=== PATIENT | male | born 1990 | race Caucasian/White ===

== ENCOUNTER 2017-07-21 21:09 | Inpatient (IN) | payer OTHER ==
--- NOTE | 2017-07-21 21:35 | HP ---
COWS - Scale Resting Pulse: 0= [place] 80 or Below Sweatin=Flushed/Facial Moisture Restless Observation: 5= Unable to Sit Still Pupil Size: 1= Pupils >than Normal Bone or Joint Aches: 4=Acute Joint/Muscle Pain Runny Nose/ Eye Tearin= Runny Nose/Eyes GI Upset > 30mins: 5=Frequent Vomit/Diarrhea Tremor Observation: 2= Slight Tremor Visible Yawning Observation: 1= 1-2x During Session Anxiety or Irritability: 2=Irritable/Anxious Goose Flesh Skin: 0=Smooth Skin COWS Score: 24 Admission ROS S - [facility] Chief Complaint: SEEKING DETOX TXMENT FOR OPIOID WITHDRAWAL SX'S Allergies/Adverse Reactions: Allergies Allergy/AdvReac Type Severity Reaction Status Date / Time No Known Allergies Allergy Verified 07/21/17 21:29 History of Present Illness: 27 Y.O. MALE WITH HX/O OF OPIOID DEPENDENCE HERE FOR DETOX TXMENT. CLIENT WAS REFERRED BY [facility] AFTER PRESENTING THERE FOR N/V/D DUE TO HEROIN WITHDRAWAL SX'S Exam Limitations: No Limitations - Ebola screening Have you traveled outside of the country in the last 21 days: No Have you had contact with anyone from an Ebola affected area: No Have you been sick,other than usual withdrawal symptoms: No Do you have a fever: No - Review of Systems Constitutional: Chills, Malaise, Night Sweats, Changes in sleep EENT: reports: No Symptoms Reported Respiratory: reports: No Symptoms reported Cardiac: reports: No Symptoms Reported GI: reports: Diarrhea, Nausea, Poor Appetite, Poor Fluid Intake, Vomiting : reports: Other (HESITANCY) Musculoskeletal: reports: Back Pain Integumentary: reports: No Symptoms Reported Neuro: reports: No Symptoms reported Endocrine: reports: No Symptoms Reported Hematology: reports: No Symptoms Reported Psychiatric: reports: Anxious, Depressed Other Systems: Reviewed and Negative Patient History - Patient Medical History Hx Anemia: No Hx Asthma: No Hx Chronic Obstructive Pulmonary Disease (COPD): No Hx Cancer: No Hx Cardiac Disorders: No Hx Congestive Heart Failure: No Hx Hypertension: No Hx Hypercholesterolemia: No Hx Pacemaker: No HX Cerebrovascular Accident: No Hx Seizures: No Hx Dementia: No Hx Diabetes: No Hx Gastrointestinal Disorders: No Hx Liver Disease: No Hx Genitourinary Disorders: No Hx Sexually Transmitted Disorders: No Hx Renal Disease (ESRD): No Hx Thyroid Disease: No Hx Human Immunodeficiency Virus (HIV): No Hx Hepatitis C: No Hx Depression: Yes (NO TXMENT) Hx Suicide Attempt: No Hx Bipolar Disorder: No Hx Schizophrenia: No Other Medical History: DENIES - Patient Surgical History Past Surgical History: No - PPD History Previous Implant?: Yes Documented Results: Negative w/o proof Implanted On Prior [facility] Admission?: No PPD to be Administered?: Yes - Smoking Cessation Smoking history: Current every day smoker Have you smoked in the past 12 months: Yes Aproximately how many cigarettes per day: 10 Cigars Per Day: 0 Hx Chewing Tobacco Use: No Initiated information on smoking cessation: Yes 'Breaking Loose' booklet given: 07/21/17 - Substance & Tx. History Hx Alcohol Use: No Hx Substance Use: Yes Substance Use Type: Heroin, Opiates (PERCOCETS) Hx Substance Use Treatment: Yes ([facility]) - Substances Abused HEROIN Route: Inhalation Frequency: 1-2 times per week Amount used: 2 BAGS Age of first use: 22 Date of Last Use: 07/20/17 PERCOCETS Route: Oral Frequency: Daily Amount used: 100MG Age of first use: 19 Date of Last Use: 07/20/17 THC Route: Smoking Frequency: Daily Amount used: 15 Age of first use: 13 Date of Last Use: 07/20/17 Family Disease History - Family Disease History Family History: Denies Admission Physical Exam [facility] - Physical General Appearance: Yes: Appropriately Dressed, Mild Distress, Tremorous, Anxious HEENTM: Yes: EOMI, Normocephalic, Normal Voice, JORGE, Pharynx Normal, Rhinorrhea Respiratory: Yes: Chest Non-Tender, Lungs Clear, Normal Breath Sounds, No Respiratory Distress, No Accessory Muscle Use Neck: Yes: Within Normal Limits Breast: Yes: Breast Exam Deferred Cardiology: Yes: Regular Rhythm, Regular Rate, S1, S2 Abdominal: Yes: Non Tender, Flat, Soft, Increased Bowel Sounds Genitourinary: Yes: Hesitency (PT REPORTS) Back: Yes: Normal Inspection Musculoskeletal: Yes: full range of Motion, Gait Steady Extremities: Yes: Normal Range of Motion, Non-Tender, Tremors Neurological: Yes: Alert, Motor Strength 5/5 Integumentary: Yes: Normal Color, Dry, Warm Lymphatic: Yes: Within Normal Limits - Diagnostic (1) Opioid dependence with withdrawal Current Visit: Yes Status: Chronic (2) Cannabis dependence, uncomplicated Current Visit: Yes Status: Chronic (3) Nicotine dependence Current Visit: Yes Status: Chronic Qualifiers: Nicotine product type: cigarettes Substance use status: uncomplicated Qualified Code(s): F17.210 - Nicotine dependence, cigarettes, uncomplicated Cleared for Admission S - Detox or Rehab [facility] Level of Care: Medically Managed Detox Regimen/Protocol: Methadone
[2017-07-21] MEDS ORDERED: MENTHOL/PHENOL 1 EACH UD MM PRN (21:47)
[2017-07-21] MEDS ORDERED: MAGNESIUM HYDROX 2400MG/30ML ORAL SUSPENSION 30 ML CUP PO PRN (21:47)
[2017-07-21] MEDS ORDERED: LOPERAMIDE HCL 2 MG CAPSULE PO PRN (21:47)
[2017-07-21] MEDS ORDERED: P-EPHED 60MG/TRIPROLIDI 2.5MG TABLET PO PRN (21:47)
[2017-07-21] MEDS ORDERED: NICOTINE POLACRILEX 2 MG GUM BC PRN (21:47)
[2017-07-21] MEDS ORDERED: IBUPROFEN 400 MG TABLET (FP) PO PRN (21:47)
[2017-07-21] MEDS ORDERED: guaiFENesin/D-METHORPHAN HB 10 ML UNIT-DOSE CUPS PO PRN (21:47)
[2017-07-21] MEDS ORDERED: MAG HYDROX/AL HYDROX/SIMETH 30 ML UNIT-DOSE CUP PO PRN (21:47)
[2017-07-21] MEDS ORDERED: MAGNESIUM CITRATE 300 ML BOTTLE PO PRN (21:47)
[2017-07-21] MEDS ORDERED: ONDANSETRON *ODT* 4 MG TABLET SL PRN (21:49)
[2017-07-21] MEDS ORDERED: METHADONE HCL 10 MG TABLET (FOR DETOX USE ONLY) PO ONE ×2 (21:55→23:00)
[2017-07-21] MEDS ORDERED: diazePAM 5 MG TABLET PO PRN (21:55)
[2017-07-21 22:00] VITALS: BMI 24.3
[2017-07-21 23:40] LABS: URINE APPEARANCE CLEAR; URINE BILIRUBIN NEGATIVE (NEGATIVE); URINE BLOOD NEGATIVE (NEGATIVE); URINE COLOR YELLOW; URINE GLUCOSE (UA) NEGATIVE (NEGATIVE); URINE KETONE NEGATIVE (NEGATIVE); URINE LEUK ESTERASE NEGATIVE (NEGATIVE); URINE NITRITE NEGATIVE (NEGATIVE); URINE PROTEIN NEGATIVE (NEGATIVE)
[2017-07-22] MEDS ORDERED: METHADONE HCL 10 MG TABLET (FOR DETOX USE ONLY) PO ONE ×4 (00:29→23:00)
[2017-07-22] MEDS: diazePAM 5 MG TABLET PO PRN ×4 (00:38→22:12)
[2017-07-22] MEDS: THIAMINE HCL 100 MG TABLET (FP) PO SCH ×2 (01:14→22:12)
[2017-07-22] MEDS: hydrOXYzine PAMOATE 50 MG CAPSULE (FP) PO PRN (04:01)
[2017-07-22 10:15] LABS: HEMATOCRIT 42.6 % (35.4-49); HEMOGLOBIN 13.6 GM/dL (11.7-16.9); MCHC 31.9 g/dl (32.0-35.9); MEAN CELL VOLUME 93.9 fl (80-96); MEAN PLT VOLUME 7.4 fl (7.5-11.1); PLATELET COUNT 419 K/MM3 (134-434); RBC 4.53 M/mm3 (4.00-5.60); RDW 13.2 % (11.9-15.9); WHITE BLOOD COUNT 13.5 K/mm3 (4.0-10.0)
[2017-07-22] MEDS: PRENATAL VITAMINS W/ FOLIC ACID TABLET (FP) PO SCH (10:43)
[2017-07-22] MEDS: NICOTINE 14 MG/24 HOURS TOPICAL PATCH TD SCH (10:44)
[2017-07-22 10:47] LABS: ALBUMIN 3.9 g/dl (3.4-5.0); ANION GAP 7 (8-16); BLOOD UREA NITROGEN 13 mg/dL (7-18); CHLORIDE 105 mmol/L (98-107); CO2 31 mmol/L (21-32); CREATININE 0.7 mg/dL (0.7-1.3); GLUCOSE,RANDOM 104 mg/dL (74-106); SGOT/AST 19 U/L (15-37); SGPT/ALT 39 U/L (12-78); SODIUM 143 mmol/L (136-145)
[2017-07-22 10:49] LABS: ALK PHOS 77 U/L (45-117); BILIRUBIN,TOTAL 0.5 mg/dL (0.2-1.0); TOT PROT 7.4 g/dl (6.4-8.2)
--- NOTE | 2017-07-22 11:49 | PN ---
BHS COWS - Scale Resting Pulse: 0= [place] 80 or Below Sweatin= Chills/Flushing Restless Observation: 3= Extraneous Movement Pupil Size: 2= Moderately Dilated Bone or Joint Aches: 1= Mild Discomfort Runny Nose/ Eye Tearin= None GI Upset > 30mins: 0= None Tremor Observation of Outstretched Hands: 2= Slight Tremor Visible Yawning Observation: 2= >3x During Session Anxiety or Irritability: 2=Irritable/Anxious Goose Flesh Skin: 0=Smooth Skin COWS Score: 13 BHS Progress Note (SOAP) Subjective: ANXIETY,SWEATS,INTERMITTENT SLEEP Objective: 07/22/17 11:48 Vital Signs Temperature 98.2 F 07/22/17 09:20 Pulse Rate 70 07/22/17 09:20 Respiratory Rate 18 07/22/17 09:20 Blood Pressure 115/81 07/22/17 09:20 O2 Sat by Pulse Oximetry (%) Laboratory Last Values WBC 13.5 K/mm3 (4.0-10.0) H 07/22/17 07:30 RBC 4.53 M/mm3 (4.00-5.60) 07/22/17 07:30 Hgb 13.6 GM/dL (11.7-16.9) 07/22/17 07:30 Hct 42.6 % (35.4-49) 07/22/17 07:30 MCV 93.9 fl (80-96) 07/22/17 07:30 MCH 30.0 pg (25.7-33.7) 07/22/17 07:30 MCHC 31.9 g/dl (32.0-35.9) L 07/22/17 07:30 RDW 13.2 % (11.9-15.9) 07/22/17 07:30 Plt Count 419 K/MM3 (134-434) 07/22/17 07:30 MPV 7.4 fl (7.5-11.1) L 07/22/17 07:30 Sodium 143 mmol/L (136-145) 07/22/17 07:30 Potassium 4.0 mmol/L (3.5-5.1) 07/22/17 07:30 Chloride 105 mmol/L (98-107) 07/22/17 07:30 Carbon Dioxide 31 mmol/L (21-32) 07/22/17 07:30 Anion Gap 7 (8-16) L 07/22/17 07:30 BUN 13 mg/dL (7-18) 07/22/17 07:30 Creatinine 0.7 mg/dL (0.7-1.3) 07/22/17 07:30 Creat Clearance w eGFR > 60 (>60) 07/22/17 07:30 Random Glucose 104 mg/dL (74-106) 07/22/17 07:30 Calcium 9.0 mg/dL (8.5-10.1) 07/22/17 07:30 Total Bilirubin 0.5 mg/dL (0.2-1.0) 07/22/17 07:30 AST 19 U/L (15-37) 07/22/17 07:30 ALT 39 U/L (12-78) 07/22/17 07:30 Alkaline Phosphatase 77 U/L (45-117) 07/22/17 07:30 Total Protein 7.4 g/dl (6.4-8.2) 07/22/17 07:30 Albumin 3.9 g/dl (3.4-5.0) 07/22/17 07:30 Urine Color Yellow 07/21/17 22:00 Urine Appearance Clear 07/21/17 22:00 Urine pH 7.0 (5.0-8.0) 07/21/17 22:00 Ur Specific [place] 1.027 (1.001-1.035) 07/21/17 22:00 Urine Protein Negative (NEGATIVE) 07/21/17 22:00 Urine Glucose (UA) Negative (NEGATIVE) 07/21/17 22:00 Urine Ketones Negative (NEGATIVE) 07/21/17 22:00 Urine Blood Negative (NEGATIVE) 07/21/17 22:00 Urine Nitrite Negative (NEGATIVE) 07/21/17 22:00 Urine Bilirubin Negative (NEGATIVE) 07/21/17 22:00 Urine Urobilinogen 2.0 mg/dL (0.2-1.0) 07/21/17 22:00 Ur Leukocyte Esterase Negative (NEGATIVE) 07/21/17 22:00 RPR Titer Nonreactive (NONREACTIVE) 07/22/17 07:30 Assessment: 07/22/17 11:48 WITHDRAWAL SX Plan: CONTINUE DETOX
[2017-07-22] MEDS ORDERED: FLU VACCINE QUAD 60 MCG/0.5 ML (MDV 17-18) IM ONE (12:00)
--- NOTE | 2017-07-22 13:09 | EKG ---
Test Reason : Blood Pressure : / mmHG Vent. Rate : 061 BPM Atrial Rate : 061 BPM P-R Int : 124 ms QRS Dur : 094 ms QT Int : 448 ms P-R-T Axes : 075 052 040 degrees QTc Int : 450 ms NORMAL SINUS RHYTHM WITH SINUS ARRHYTHMIA NORMAL ECG NO PREVIOUS ECGS AVAILABLE Confirmed by ÁNGEL STOKES MD ([id number]) on 07/22/2017 1:09:29 PM Referred By: Confirmed By:ÁNGEL STOKES MD
--- NOTE | 2017-07-22 14:02 | CONSULT ---
[facility] Psychiatric Consult - Data Date of interview: 07/22/17 Admission source: [facility] Identifying data: First admission to [facility] for this 27 y/o male, currently on [address] for detox treatment for heroin and cannabis dependence.Patient is single,father of one,domiciled,unemployed and reportedly deprived of financial assistance. Substance Abuse History: Confirmed by patient in this session.Details in current [facility] report : Smoking history: Current every day smoker. Have you smoked in the past 12 months: Yes. Aproximately how many cigarettes per day: 10. Cigars Per Day: 0. Hx Chewing Tobacco Use: No. Initiated information on smoking cessation: Yes. 'Breaking Loose' booklet given: 07/21/17. - Substance & Tx. History. Hx Alcohol Use: No. Hx Substance Use: Yes. Substance Use Type : Heroin, Opiates (PERCOCETS). Hx Substance Use Treatment: Yes ([facility]). - Substances Abused. HEROIN. Route: Inhalation. Frequency: 1-2 times per week. Amount used: 2 BAGS. Age of first use: 22. Date of Last Use: 07/20/17. PERCOCETS. Route: Oral. Frequency: Daily. Amount used: 100MG. Age of first use: 19. Date of Last Use: 07/20/17. THC. Route: Smoking. Frequency : Daily. Amount used: 15. Age of first use: 13. Date of Last Use: 07/20/17 Medical History: Patient endorses good general health. Psychiatric History: Patient denies. Physical/Sexual Abuse/Trauma History: Patient denies. Additional Comment: No toxicology available on admission. Mental Status Exam - Mental Status Exam Alert and Oriented to: Time, Place, Person Cognitive Function: Good Patient Appearance: Well Groomed (tattoos on right forearm) Mood: Hopeful, Euthymic Affect: Appropriate, Normal Range Patient Behavior: Appropriate, Cooperative Speech Pattern: Clear, Appropriate Voice Loudness: Normal Thought Process: Intact, Goal Oriented Thought Disorder: Not Present Hallucinations: Denies Suicidal Ideation: Denies Homicidal Ideation: Denies Insight/Judgement: Poor Sleep: Poorly, Difficulty falling asleep (requests seroquel) Appetite: Good Muscle strength/Tone: Normal Gait/Station: Normal Psychiatric Findings - Problem List ([place] 1, 2,3) (1) Opioid dependence with withdrawal Current Visit: Yes Status: Acute (2) Cannabis dependence, uncomplicated Current Visit: Yes Status: Acute (3) Nicotine dependence Current Visit: Yes Status: Acute Qualifiers: Nicotine product type: cigarettes Substance use status: in withdrawal Qualified Code(s): F17.213 - Nicotine dependence, cigarettes, with withdrawal (4) Insomnia Current Visit: Yes Status: Acute - Initial Treatment Plan Initial Treatment Plan: Psychoeducation and support.Sleep hygiene discussed in session.Detoxification in progress.Seroquel 100 mg po hs (patient's specific request).Side effects/benefits discussed with patient.Mr Monge consented ( verbally) to this careplan.Daily monitoring of clinical course.
[2017-07-22] MEDS ORDERED: DOCUSATE SODIUM 100 MG CAPSULE (FP) PO PRN (21:06)
[2017-07-22] MEDS: QUEtiapine FUMARATE 100 MG TABLET (FP) PO SCH (22:12)
[2017-07-23] MEDS ORDERED: METHADONE HCL 10 MG TABLET (FOR DETOX USE ONLY) PO ONE (10:00)
[2017-07-23] MEDS ORDERED: METHADONE HCL 5 MG TABLET (FOR DETOX USE ONLY) PO ONE (10:00)
[2017-07-23] MEDS: PRENATAL VITAMINS W/ FOLIC ACID TABLET (FP) PO SCH (10:22)
[2017-07-23] MEDS: diazePAM 5 MG TABLET PO PRN ×3 (10:22→23:52)
[2017-07-23] MEDS: NICOTINE 14 MG/24 HOURS TOPICAL PATCH TD SCH (10:24)
--- NOTE | 2017-07-23 12:24 | PN ---
S COWS - Scale Resting Pulse: 1= [place] 81-100 Sweatin= Chills/Flushing Restless Observation: 0= Sits Still Pupil Size: 2= Moderately Dilated Bone or Joint Aches: 4=Acute Joint/Muscle Pain Runny Nose/ Eye Tearin= Nasal Congestion GI Upset > 30mins: 0= None Tremor Observation of Outstretched Hands: 1= Tremor [place], Not Seen Yawning Observation: 1= 1-2x During Session Anxiety or Irritability: 1=Feels Anxious/Irritable Goose Flesh Skin: 0=Smooth Skin COWS Score: 12 BHS Progress Note (SOAP) Subjective: DECREASED ANXIETY,SWEATS,CHILLS. SLIGHT FATIGUE. Objective: 07/23/17 12:24 Vital Signs Temperature 97.3 F L 07/23/17 09:14 Pulse Rate 86 07/23/17 09:14 Respiratory Rate 18 07/23/17 09:14 Blood Pressure 110/70 07/23/17 09:14 O2 Sat by Pulse Oximetry (%) Laboratory Last Values WBC 13.5 K/mm3 (4.0-10.0) H 07/22/17 07:30 RBC 4.53 M/mm3 (4.00-5.60) 07/22/17 07:30 Hgb 13.6 GM/dL (11.7-16.9) 07/22/17 07:30 Hct 42.6 % (35.4-49) 07/22/17 07:30 MCV 93.9 fl (80-96) 07/22/17 07:30 MCH 30.0 pg (25.7-33.7) 07/22/17 07:30 MCHC 31.9 g/dl (32.0-35.9) L 07/22/17 07:30 RDW 13.2 % (11.9-15.9) 07/22/17 07:30 Plt Count 419 K/MM3 (134-434) 07/22/17 07:30 MPV 7.4 fl (7.5-11.1) L 07/22/17 07:30 Sodium 143 mmol/L (136-145) 07/22/17 07:30 Potassium 4.0 mmol/L (3.5-5.1) 07/22/17 07:30 Chloride 105 mmol/L (98-107) 07/22/17 07:30 Carbon Dioxide 31 mmol/L (21-32) 07/22/17 07:30 Anion Gap 7 (8-16) L 07/22/17 07:30 BUN 13 mg/dL (7-18) 07/22/17 07:30 Creatinine 0.7 mg/dL (0.7-1.3) 07/22/17 07:30 Creat Clearance w eGFR > 60 (>60) 07/22/17 07:30 Random Glucose 104 mg/dL (74-106) 07/22/17 07:30 Calcium 9.0 mg/dL (8.5-10.1) 07/22/17 07:30 Total Bilirubin 0.5 mg/dL (0.2-1.0) 07/22/17 07:30 AST 19 U/L (15-37) 07/22/17 07:30 ALT 39 U/L (12-78) 07/22/17 07:30 Alkaline Phosphatase 77 U/L (45-117) 07/22/17 07:30 Total Protein 7.4 g/dl (6.4-8.2) 07/22/17 07:30 Albumin 3.9 g/dl (3.4-5.0) 07/22/17 07:30 Urine Color Yellow 07/21/17 22:00 Urine Appearance Clear 07/21/17 22:00 Urine pH 7.0 (5.0-8.0) 07/21/17 22:00 Ur Specific [place] 1.027 (1.001-1.035) 07/21/17 22:00 Urine Protein Negative (NEGATIVE) 07/21/17 22:00 Urine Glucose (UA) Negative (NEGATIVE) 07/21/17 22:00 Urine Ketones Negative (NEGATIVE) 07/21/17 22:00 Urine Blood Negative (NEGATIVE) 07/21/17 22:00 Urine Nitrite Negative (NEGATIVE) 07/21/17 22:00 Urine Bilirubin Negative (NEGATIVE) 07/21/17 22:00 Urine Urobilinogen 2.0 mg/dL (0.2-1.0) 07/21/17 22:00 Ur Leukocyte Esterase Negative (NEGATIVE) 07/21/17 22:00 RPR Titer Nonreactive (NONREACTIVE) 07/22/17 07:30 Assessment: 07/23/17 12:24 WITHDRAWAL SX Plan: CONTINUE DETOX
[2017-07-23] MEDS: THIAMINE HCL 100 MG TABLET (FP) PO SCH (22:17)
[2017-07-23] MEDS: QUEtiapine FUMARATE 100 MG TABLET (FP) PO SCH (22:17)
[2017-07-23] MEDS: hydrOXYzine PAMOATE 50 MG CAPSULE (FP) PO PRN (22:17)
[2017-07-24] MEDS: diazePAM 5 MG TABLET PO PRN ×5 (06:16→22:50)
[2017-07-24] MEDS ORDERED: CYCLOBENZAPRINE HCL 10 MG TABLET (FP) PO ONE (08:47)
[2017-07-24] MEDS ORDERED: METHADONE HCL 5 MG TABLET (FOR DETOX USE ONLY) PO ONE ×2 (10:00)
--- NOTE | 2017-07-24 10:16 | PN ---
Psychiatric Progress Note Vital Signs: Vital Signs Period Temp Pulse Resp BP Sys/Mcwilliams Pulse Ox Last 24 Hr 96.9 F-97.4 F 78-88 16-18 113-134/69-88 Date of Session: 07/24/17 Chief Complaint:: " I need more methadone to calm my nerves." HPI: Day 3 of detoxification treatment.Uneventful hospital course until the patient was heard saying that he wants " to hang " himself.Counselor Jaimie reported this statement to staff. ROS: Unremarkble.Patient is always visible on the unit.Socializing.No evidence of distress.Intact cognition. Current Medications: Active Medications Generic Name Dose Route Start Last Admin Trade Name Freq PRN Reason Stop Dose Admin Acetaminophen 650 mg 07/21/17 21:47 Tylenol - PO Q4H PRN FEVER Al Hydroxide/Mg Hydroxide 30 ml 07/21/17 21:47 07/24/17 03:48 Mylanta Oral Suspension - PO 30 ml Q6H PRN Administration DYSPEPSIA Clonidine 0.1 mg 07/24/17 10:00 Catapres - PO BID YOLANDA Cyclobenzaprine HCl 10 mg 07/24/17 14:00 Flexeril - PO TID YOLANDA Diazepam 10 mg 07/22/17 00:29 07/24/17 06:16 Valium - PO 07/25/17 00:28 10 mg Q4H PRN Administration WITHDRAWAL(CONT SUBST) Docusate Sodium 100 mg 07/22/17 21:06 07/22/17 22:15 Colace - PO 100 mg BID PRN Administration CONSTIPATION Eucalyptus/Menthol/Phenol/Sorbitol 1 each 07/21/17 21:47 Cepastat Lozenge - MM Q4H PRN SORE THROAT Guaifenesin 10 ml 07/21/17 21:47 Robitussin Dm - PO Q6H PRN COUGH Hydroxyzine Pamoate 50 mg 07/21/17 21:47 07/23/17 22:17 Vistaril - PO 50 mg Q4H PRN Administration AGITATION Loperamide HCl 4 mg 07/21/17 21:47 Imodium - PO Q6H PRN DIARRHEA Magnesium Citrate 300 ml 07/21/17 21:47 Citroma - PO Q48H PRN CONSTIPATION Magnesium Hydroxide 30 ml 07/21/17 21:47 Milk Of Magnesia - PO DAILY PRN CONSTIPATION Methadone HCl 5 mg 07/27/17 06:00 Dolophine - PO 07/27/17 06:01 ONCE@0600 ONE Methadone HCl 15 mg 07/25/17 10:00 Dolophine - PO 07/25/17 10:01 ONCE ONE Methadone HCl 10 mg 07/26/17 10:00 Dolophine - PO 07/26/17 10:01 ONCE ONE Nicotine 14 mg 07/22/17 10:00 07/23/17 10:24 Nicoderm Patch - TD Not Given DAILY YOLANDA Nicotine Polacrilex 2 mg 07/21/17 21:47 Nicorette Gum - BC Q2H PRN NICOTINE REPLACEMENT RX Ondansetron HCl 4 mg 07/21/17 21:49 Zofran Odt - SL Q8H PRN NAUSEA Multivit/Folic Acid/Iron 1 tab 07/22/17 10:00 07/23/17 10:22 Vitamins ([facility]) - PO 1 tab DAILY YOLANDA Administration Pseudoephedrine/Triprolidine 1 combo 07/21/17 21:47 Actifed - PO TID PRN NASAL CONGESTION Quetiapine Fumarate 100 mg 07/22/17 22:00 07/23/17 22:17 Seroquel - PO 100 mg HS YOLANDA Administration Thiamine HCl 100 mg 07/21/17 22:00 07/23/17 22:17 Vitamin B1 - PO 100 mg HS YOLANDA Administration Medication(s) Change(s): No indication for modification of medication regimen. Current Side Effect: No Lab tests ordered: No Lab tests reviewed: Yes Provider note:: Asked to re-evaluate this patient for suicidal ideation.Chart reviewed.Case discussed with the multidisciplinary team.Met with patient.Found sitting in dayroom area conversing calmly with peers. " Surprised " to be engaged by the psychiatrist for a new evaluation. Mr Monge declares that he " did not mean " his words.He comments that he was angry at staff for " not paying attention " to his complaints (joint pain,dysphoria,restlessness and anxiety).Argues that his methadone dose is " too low." Patient protests that his current detoxification protocol is ineffective. " I am thinking about leaving this program to get my dope (sic) and cigarettes from the streets." Denies suicidal or homicidal ideation,intent or plan." I apologize for having said that I want to hang myself.I was angry.I thought that it was the only way to catch the attention of the staff.I felt that my needs are being ignored." Patient is redirected.Made aware of more mature ways to ventilate his frustration and concerns. Receptive to teaching.Patient is exhibiting the pattern of behavior compatible with a character disorder (antisocial/borderline ) bent on manipulation for secundary gains.Mental status is otherwise stable.Firm limits set.No necessity for further psychiatric intervention. Total face to face time:: 35 Mental Status Exam - Mental Status Exam Alert and Oriented to: Time, Place, Person Cognitive Function: Good Patient Appearance: Well Groomed Mood: Irritable Affect: Appropriate, Normal Range Patient Behavior: Inappropriate (manipulative,medication-seeking,continuously testing limits and regulations/unit rules), Cooperative Speech Pattern: Clear Voice Loudness: Normal Thought Process: Intact, Goal Oriented Thought Disorder: Not Present Hallucinations: Denies Suicidal Ideation: Denies Homicidal Ideation: Denies Insight/Judgement: Poor Sleep: Well Appetite: Good Muscle strength/Tone: Normal Gait/Station: Normal Psychiatric Treatment Plan - Problem List (1) Opioid dependence with withdrawal Current Visit: Yes (2) Cannabis dependence, uncomplicated Current Visit: Yes (3) Nicotine dependence Current Visit: Yes Qualifiers: Nicotine product type: cigarettes Substance use status: in withdrawal Qualified Code(s): F17.213 - Nicotine dependence, cigarettes, with withdrawal (4) Personality disorder, unspecified Current Visit: Yes (5) Insomnia Current Visit: Yes
[2017-07-24] MEDS: cloNIDine HCL 0.1 MG TABLET PO SCH ×2 (10:50→22:10)
[2017-07-24] MEDS: PRENATAL VITAMINS W/ FOLIC ACID TABLET (FP) PO SCH (10:50)
[2017-07-24] MEDS: NICOTINE 14 MG/24 HOURS TOPICAL PATCH TD SCH (10:51)
--- NOTE | 2017-07-24 12:09 | PN ---
BHS Progress Note (SOAP) Subjective: ANXIETY,SWEATS,IRRITABILITY,AGITATIONS, WANTS MORE METAHDONE. EXPLAINED DETOX PROTOCOL TO PATIENT. Objective: 07/24/17 12:08 Vital Signs Temperature 97.3 F L 07/24/17 09:10 Pulse Rate 83 07/24/17 09:10 Respiratory Rate 18 07/24/17 09:10 Blood Pressure 113/80 07/24/17 09:10 O2 Sat by Pulse Oximetry (%) Laboratory Last Values WBC 13.5 K/mm3 (4.0-10.0) H 07/22/17 07:30 RBC 4.53 M/mm3 (4.00-5.60) 07/22/17 07:30 Hgb 13.6 GM/dL (11.7-16.9) 07/22/17 07:30 Hct 42.6 % (35.4-49) 07/22/17 07:30 MCV 93.9 fl (80-96) 07/22/17 07:30 MCH 30.0 pg (25.7-33.7) 07/22/17 07:30 MCHC 31.9 g/dl (32.0-35.9) L 07/22/17 07:30 RDW 13.2 % (11.9-15.9) 07/22/17 07:30 Plt Count 419 K/MM3 (134-434) 07/22/17 07:30 MPV 7.4 fl (7.5-11.1) L 07/22/17 07:30 Sodium 143 mmol/L (136-145) 07/22/17 07:30 Potassium 4.0 mmol/L (3.5-5.1) 07/22/17 07:30 Chloride 105 mmol/L (98-107) 07/22/17 07:30 Carbon Dioxide 31 mmol/L (21-32) 07/22/17 07:30 Anion Gap 7 (8-16) L 07/22/17 07:30 BUN 13 mg/dL (7-18) 07/22/17 07:30 Creatinine 0.7 mg/dL (0.7-1.3) 07/22/17 07:30 Creat Clearance w eGFR > 60 (>60) 07/22/17 07:30 Random Glucose 104 mg/dL (74-106) 07/22/17 07:30 Calcium 9.0 mg/dL (8.5-10.1) 07/22/17 07:30 Total Bilirubin 0.5 mg/dL (0.2-1.0) 07/22/17 07:30 AST 19 U/L (15-37) 07/22/17 07:30 ALT 39 U/L (12-78) 07/22/17 07:30 Alkaline Phosphatase 77 U/L (45-117) 07/22/17 07:30 Total Protein 7.4 g/dl (6.4-8.2) 07/22/17 07:30 Albumin 3.9 g/dl (3.4-5.0) 07/22/17 07:30 Urine Color Yellow 07/21/17 22:00 Urine Appearance Clear 07/21/17 22:00 Urine pH 7.0 (5.0-8.0) 07/21/17 22:00 Ur Specific [place] 1.027 (1.001-1.035) 07/21/17 22:00 Urine Protein Negative (NEGATIVE) 07/21/17 22:00 Urine Glucose (UA) Negative (NEGATIVE) 07/21/17 22:00 Urine Ketones Negative (NEGATIVE) 07/21/17 22:00 Urine Blood Negative (NEGATIVE) 07/21/17 22:00 Urine Nitrite Negative (NEGATIVE) 07/21/17 22:00 Urine Bilirubin Negative (NEGATIVE) 07/21/17 22:00 Urine Urobilinogen 2.0 mg/dL (0.2-1.0) 07/21/17 22:00 Ur Leukocyte Esterase Negative (NEGATIVE) 07/21/17 22:00 RPR Titer Nonreactive (NONREACTIVE) 07/22/17 07:30 Assessment: 07/24/17 12:09 WITHDRAWAL SX Laboratory Last Values WBC 13.5 K/mm3 (4.0-10.0) H 07/22/17 07:30 RBC 4.53 M/mm3 (4.00-5.60) 07/22/17 07:30 Hgb 13.6 GM/dL (11.7-16.9) 07/22/17 07:30 Hct 42.6 % (35.4-49) 07/22/17 07:30 MCV 93.9 fl (80-96) 07/22/17 07:30 MCH 30.0 pg (25.7-33.7) 07/22/17 07:30 MCHC 31.9 g/dl (32.0-35.9) L 07/22/17 07:30 RDW 13.2 % (11.9-15.9) 07/22/17 07:30 Plt Count 419 K/MM3 (134-434) 07/22/17 07:30 MPV 7.4 fl (7.5-11.1) L 07/22/17 07:30 Sodium 143 mmol/L (136-145) 07/22/17 07:30 Potassium 4.0 mmol/L (3.5-5.1) 07/22/17 07:30 Chloride 105 mmol/L (98-107) 07/22/17 07:30 Carbon Dioxide 31 mmol/L (21-32) 07/22/17 07:30 Anion Gap 7 (8-16) L 07/22/17 07:30 BUN 13 mg/dL (7-18) 07/22/17 07:30 Creatinine 0.7 mg/dL (0.7-1.3) 07/22/17 07:30 Creat Clearance w eGFR > 60 (>60) 07/22/17 07:30 Random Glucose 104 mg/dL (74-106) 07/22/17 07:30 Calcium 9.0 mg/dL (8.5-10.1) 07/22/17 07:30 Total Bilirubin 0.5 mg/dL (0.2-1.0) 07/22/17 07:30 AST 19 U/L (15-37) 07/22/17 07:30 ALT 39 U/L (12-78) 07/22/17 07:30 Alkaline Phosphatase 77 U/L (45-117) 07/22/17 07:30 Total Protein 7.4 g/dl (6.4-8.2) 07/22/17 07:30 Albumin 3.9 g/dl (3.4-5.0) 07/22/17 07:30 Urine Color Yellow 07/21/17 22:00 Urine Appearance Clear 07/21/17 22:00 Urine pH 7.0 (5.0-8.0) 07/21/17 22:00 Ur Specific [place] 1.027 (1.001-1.035) 07/21/17 22:00 Urine Protein Negative (NEGATIVE) 07/21/17 22:00 Urine Glucose (UA) Negative (NEGATIVE) 07/21/17 22:00 Urine Ketones Negative (NEGATIVE) 07/21/17 22:00 Urine Blood Negative (NEGATIVE) 07/21/17 22:00 Urine Nitrite Negative (NEGATIVE) 07/21/17 22:00 Urine Bilirubin Negative (NEGATIVE) 07/21/17 22:00 Urine Urobilinogen 2.0 mg/dL (0.2-1.0) 07/21/17 22:00 Ur Leukocyte Esterase Negative (NEGATIVE) 07/21/17 22:00 RPR Titer Nonreactive (NONREACTIVE) 07/22/17 07:30 Plan: CONTINUE DETOX
[2017-07-24] MEDS: CYCLOBENZAPRINE HCL 10 MG TABLET (FP) PO SCH ×2 (14:27→22:10)
[2017-07-24] MEDS: QUEtiapine FUMARATE 100 MG TABLET (FP) PO SCH (22:10)
[2017-07-24] MEDS: THIAMINE HCL 100 MG TABLET (FP) PO SCH (22:10)
[2017-07-24] MEDS: hydrOXYzine PAMOATE 50 MG CAPSULE (FP) PO PRN (22:50)
[2017-07-25] MEDS: CYCLOBENZAPRINE HCL 10 MG TABLET (FP) PO SCH ×4 (05:54→22:52)
[2017-07-25] MEDS: hydrOXYzine PAMOATE 50 MG CAPSULE (FP) PO PRN ×2 (07:12→22:55)
[2017-07-25] MEDS ORDERED: METHADONE HCL 5 MG TABLET (FOR DETOX USE ONLY) PO ONE (10:00)
[2017-07-25] MEDS ORDERED: METHADONE HCL 10 MG TABLET (FOR DETOX USE ONLY) PO ONE (10:00)
[2017-07-25] MEDS: PRENATAL VITAMINS W/ FOLIC ACID TABLET (FP) PO SCH (10:47)
[2017-07-25] MEDS: cloNIDine HCL 0.1 MG TABLET PO SCH ×3 (11:26→22:52)
[2017-07-25] MEDS: NICOTINE 14 MG/24 HOURS TOPICAL PATCH TD SCH (11:27)
--- NOTE | 2017-07-25 12:13 | PN ---
Psychiatric Progress Note Vital Signs: Vital Signs Period Temp Pulse Resp BP Sys/Mcwilliams Pulse Ox Last 24 Hr 95.5 F-98.2 F 72-92 18-20 105-117/53-81 Date of Session: 07/25/17 Chief Complaint:: "I need more medications." HPI: Pt. admitted to for cannabis and opiate dependence. ROS: Unremarkable. Pt. visible but drowsy. Observed speaking to his peers in the day room. Current Medications: Active Medications Generic Name Dose Route Start Last Admin Trade Name Freq PRN Reason Stop Dose Admin Acetaminophen 650 mg 07/21/17 21:47 Tylenol - PO Q4H PRN FEVER Al Hydroxide/Mg Hydroxide 30 ml 07/21/17 21:47 07/24/17 03:48 Mylanta Oral Suspension - PO 30 ml Q6H PRN Administration DYSPEPSIA Clonidine 0.1 mg 07/24/17 10:00 07/25/17 11:26 Catapres - PO Not Given BID YOLANDA Cyclobenzaprine HCl 10 mg 07/24/17 14:00 07/25/17 05:54 Flexeril - PO 10 mg TID YOLANDA Administration Docusate Sodium 100 mg 07/22/17 21:06 07/22/17 22:15 Colace - PO 100 mg BID PRN Administration CONSTIPATION Eucalyptus/Menthol/Phenol/Sorbitol 1 each 07/21/17 21:47 Cepastat Lozenge - MM Q4H PRN SORE THROAT Guaifenesin 10 ml 07/21/17 21:47 Robitussin Dm - PO Q6H PRN COUGH Hydroxyzine Pamoate 50 mg 07/21/17 21:47 07/25/17 07:12 Vistaril - PO 50 mg Q4H PRN Administration AGITATION Loperamide HCl 4 mg 07/21/17 21:47 Imodium - PO Q6H PRN DIARRHEA Magnesium Citrate 300 ml 07/21/17 21:47 Citroma - PO Q48H PRN CONSTIPATION Magnesium Hydroxide 30 ml 07/21/17 21:47 Milk Of Magnesia - PO DAILY PRN CONSTIPATION Methadone HCl 5 mg 07/27/17 06:00 Dolophine - PO 07/27/17 06:01 ONCE@0600 ONE Methadone HCl 10 mg 07/26/17 10:00 Dolophine - PO 07/26/17 10:01 ONCE ONE Nicotine 14 mg 07/22/17 10:00 07/25/17 11:27 Nicoderm Patch - TD Not Given DAILY YOLANDA Nicotine Polacrilex 2 mg 07/21/17 21:47 Nicorette Gum - BC Q2H PRN NICOTINE REPLACEMENT RX Ondansetron HCl 4 mg 07/21/17 21:49 Zofran Odt - SL Q8H PRN NAUSEA Multivit/Folic Acid/Iron 1 tab 07/22/17 10:00 07/25/17 10:47 Vitamins (Sjr) - PO 1 tab DAILY YOLANDA Administration Pseudoephedrine/Triprolidine 1 combo 07/21/17 21:47 Actifed - PO TID PRN NASAL CONGESTION Quetiapine Fumarate 100 mg 07/22/17 22:00 07/24/17 22:10 Seroquel - PO 100 mg HS YOLANDA Administration Thiamine HCl 100 mg 07/21/17 22:00 07/24/17 22:10 Vitamin B1 - PO 100 mg HS YOLANDA Administration Medication(s) Change(s): No Current Side Effect: No Lab tests ordered: No Lab tests reviewed: Yes Provider note:: Asked to re-evaluate this patient for his third psychiatric consultation.Chart reviewed.Case discussed with the multidisciplinary team. Pt. presents as upset and drowsy. Pt. requesting additional medications. As per patient, "the medications yall giving me is not enough. I need more medications. I can leave and get high and feel better.'" Pt. requesting an extra 100mg dose of seroquel for this evening despite presenting as drowsy, sedated, and unable to keep his eyes open while speaking to health science writer. Pt. made aware that seroquel will not be increased due to his drowsiness and as per nursing note, patient slept well through the night. Pt. then insisted on needing an increase of methadone and valium. Psychoeducation and psychopharmacotherapy provided. Pt. remained upset and stated, " if i don't get more medications here i will just leave and get high in the streets. honestly i'm only here because i have no where to go." Pt continues to perservate on needing additional medications and is having a difficult time accepting feedback from health science writer. Patient is exhibiting manipulative behavior in hopes of receiving secondary gains. Pt. denies suicidal and homicidal ideation. Will continue to monitor patient. Total face to face time:: 25 Mental Status Exam - Mental Status Exam Alert and Oriented to: Time, Place, Person Cognitive Function: Good Patient Appearance: Unkempt Mood: Irritable Affect: Mood Congruent Patient Behavior: Sedated, Fatigued, Agitated ( Exhibiting arm movements in frustration due to not receiving additional requested medications. ) Speech Pattern: Delayed, Perseverating Voice Loudness: Normal Thought Process: Goal Oriented Thought Disorder: Not Present Hallucinations: Denies Suicidal Ideation: Denies Homicidal Ideation: Denies Insight/Judgement: Poor Sleep: Well (As per nursing note patient reported good sleep last night. ) Appetite: Fair Muscle strength/Tone: Normal Gait/Station: Normal Psychiatric Treatment Plan - Problem List (1) Cannabis dependence, uncomplicated Current Visit: Yes (2) Insomnia Current Visit: Yes (3) Nicotine dependence Current Visit: Yes Qualifiers: Nicotine product type: cigarettes Substance use status: in withdrawal Qualified Code(s): F17.213 - Nicotine dependence, cigarettes, with withdrawal (4) Opioid dependence with withdrawal Current Visit: Yes (5) Personality disorder, unspecified Current Visit: Yes
--- NOTE | 2017-07-25 14:37 | PN ---
[facility] Progress Note (SOAP) Subjective: PT IS VERY IRRITABLE, ANXIOUS, AND C/O INSOMNIA BUT PT WAS STARTED ON SEROQUEL LAST NIGHT AND APPEARS SLIGHTLY DROWSY AT ROUNDS. PT CONTINUES TO C/O WANTING MORE METHADONE. EXPLAINED TO PATIENT THE DETOX PROTOCOL AND THE NEED TO TX WITHDRAWAL SX WITH APPRORIATE MEDICATIONS. Objective: 07/25/17 14:37 Vital Signs Temperature 96.7 F L 07/25/17 13:49 Pulse Rate 78 07/25/17 13:49 Respiratory Rate 16 07/25/17 13:49 Blood Pressure 116/71 07/25/17 13:49 O2 Sat by Pulse Oximetry (%) Laboratory Last Values WBC 13.5 K/mm3 (4.0-10.0) H 07/22/17 07:30 RBC 4.53 M/mm3 (4.00-5.60) 07/22/17 07:30 Hgb 13.6 GM/dL (11.7-16.9) 07/22/17 07:30 Hct 42.6 % (35.4-49) 07/22/17 07:30 MCV 93.9 fl (80-96) 07/22/17 07:30 MCH 30.0 pg (25.7-33.7) 07/22/17 07:30 MCHC 31.9 g/dl (32.0-35.9) L 07/22/17 07:30 RDW 13.2 % (11.9-15.9) 07/22/17 07:30 Plt Count 419 K/MM3 (134-434) 07/22/17 07:30 MPV 7.4 fl (7.5-11.1) L 07/22/17 07:30 Sodium 143 mmol/L (136-145) 07/22/17 07:30 Potassium 4.0 mmol/L (3.5-5.1) 07/22/17 07:30 Chloride 105 mmol/L (98-107) 07/22/17 07:30 Carbon Dioxide 31 mmol/L (21-32) 07/22/17 07:30 Anion Gap 7 (8-16) L 07/22/17 07:30 BUN 13 mg/dL (7-18) 07/22/17 07:30 Creatinine 0.7 mg/dL (0.7-1.3) 07/22/17 07:30 Creat Clearance w eGFR > 60 (>60) 07/22/17 07:30 Random Glucose 104 mg/dL (74-106) 07/22/17 07:30 Calcium 9.0 mg/dL (8.5-10.1) 07/22/17 07:30 Total Bilirubin 0.5 mg/dL (0.2-1.0) 07/22/17 07:30 AST 19 U/L (15-37) 07/22/17 07:30 ALT 39 U/L (12-78) 07/22/17 07:30 Alkaline Phosphatase 77 U/L (45-117) 07/22/17 07:30 Total Protein 7.4 g/dl (6.4-8.2) 07/22/17 07:30 Albumin 3.9 g/dl (3.4-5.0) 07/22/17 07:30 Urine Color Yellow 07/21/17 22:00 Urine Appearance Clear 07/21/17 22:00 Urine pH 7.0 (5.0-8.0) 07/21/17 22:00 Ur Specific [place] 1.027 (1.001-1.035) 07/21/17 22:00 Urine Protein Negative (NEGATIVE) 07/21/17 22:00 Urine Glucose (UA) Negative (NEGATIVE) 07/21/17 22:00 Urine Ketones Negative (NEGATIVE) 07/21/17 22:00 Urine Blood Negative (NEGATIVE) 07/21/17 22:00 Urine Nitrite Negative (NEGATIVE) 07/21/17 22:00 Urine Bilirubin Negative (NEGATIVE) 07/21/17 22:00 Urine Urobilinogen 2.0 mg/dL (0.2-1.0) 07/21/17 22:00 Ur Leukocyte Esterase Negative (NEGATIVE) 07/21/17 22:00 RPR Titer Nonreactive (NONREACTIVE) 07/22/17 07:30 Assessment: 07/25/17 14:37 WITHDRAWAL SX Plan: CONTINUE DETOX. PT WAS RE-EVALUATED BY PSYCH AGAIN TODAY. CONTINUE FLEXERIL; CLONIDINE DIRECTED.
[2017-07-25] MEDS: QUEtiapine FUMARATE 100 MG TABLET (FP) PO SCH ×2 (22:49→22:52)
[2017-07-25] MEDS: THIAMINE HCL 100 MG TABLET (FP) PO SCH ×2 (22:49→22:57)
[2017-07-26] MEDS ORDERED: METHADONE HCL 5 MG TABLET (FOR DETOX USE ONLY) PO ONE (06:00)
[2017-07-26] MEDS: CYCLOBENZAPRINE HCL 10 MG TABLET (FP) PO SCH ×3 (06:31→22:28)
[2017-07-26] MEDS ORDERED: METHADONE HCL 10 MG TABLET (FOR DETOX USE ONLY) PO ONE (10:00)
[2017-07-26] MEDS: NICOTINE 14 MG/24 HOURS TOPICAL PATCH TD SCH (10:28)
[2017-07-26] MEDS: PRENATAL VITAMINS W/ FOLIC ACID TABLET (FP) PO SCH (10:28)
[2017-07-26] MEDS: cloNIDine HCL 0.1 MG TABLET PO SCH ×2 (10:28→22:28)
[2017-07-26] MEDS: hydrOXYzine PAMOATE 50 MG CAPSULE (FP) PO PRN ×2 (13:07→22:28)
--- NOTE | 2017-07-26 17:10 | PN ---
[facility] Progress Note (SOAP) Subjective: LESS AGITATIONS TODAY. ALERT OX3. OOB AROUND THE STATION AND PARTICIPATING IN ACTIVITY. Objective: 07/26/17 17:12 Vital Signs Temperature 96.8 F L 07/26/17 13:12 Pulse Rate 88 07/26/17 13:12 Respiratory Rate 18 07/26/17 13:12 Blood Pressure 118/74 07/26/17 13:12 O2 Sat by Pulse Oximetry (%) Laboratory Last Values WBC 13.5 K/mm3 (4.0-10.0) H 07/22/17 07:30 RBC 4.53 M/mm3 (4.00-5.60) 07/22/17 07:30 Hgb 13.6 GM/dL (11.7-16.9) 07/22/17 07:30 Hct 42.6 % (35.4-49) 07/22/17 07:30 MCV 93.9 fl (80-96) 07/22/17 07:30 MCH 30.0 pg (25.7-33.7) 07/22/17 07:30 MCHC 31.9 g/dl (32.0-35.9) L 07/22/17 07:30 RDW 13.2 % (11.9-15.9) 07/22/17 07:30 Plt Count 419 K/MM3 (134-434) 07/22/17 07:30 MPV 7.4 fl (7.5-11.1) L 07/22/17 07:30 Sodium 143 mmol/L (136-145) 07/22/17 07:30 Potassium 4.0 mmol/L (3.5-5.1) 07/22/17 07:30 Chloride 105 mmol/L (98-107) 07/22/17 07:30 Carbon Dioxide 31 mmol/L (21-32) 07/22/17 07:30 Anion Gap 7 (8-16) L 07/22/17 07:30 BUN 13 mg/dL (7-18) 07/22/17 07:30 Creatinine 0.7 mg/dL (0.7-1.3) 07/22/17 07:30 Creat Clearance w eGFR > 60 (>60) 07/22/17 07:30 Random Glucose 104 mg/dL (74-106) 07/22/17 07:30 Calcium 9.0 mg/dL (8.5-10.1) 07/22/17 07:30 Total Bilirubin 0.5 mg/dL (0.2-1.0) 07/22/17 07:30 AST 19 U/L (15-37) 07/22/17 07:30 ALT 39 U/L (12-78) 07/22/17 07:30 Alkaline Phosphatase 77 U/L (45-117) 07/22/17 07:30 Total Protein 7.4 g/dl (6.4-8.2) 07/22/17 07:30 Albumin 3.9 g/dl (3.4-5.0) 07/22/17 07:30 Urine Color Yellow 07/21/17 22:00 Urine Appearance Clear 07/21/17 22:00 Urine pH 7.0 (5.0-8.0) 07/21/17 22:00 Ur Specific [place] 1.027 (1.001-1.035) 07/21/17 22:00 Urine Protein Negative (NEGATIVE) 07/21/17 22:00 Urine Glucose (UA) Negative (NEGATIVE) 07/21/17 22:00 Urine Ketones Negative (NEGATIVE) 07/21/17 22:00 Urine Blood Negative (NEGATIVE) 07/21/17 22:00 Urine Nitrite Negative (NEGATIVE) 07/21/17 22:00 Urine Bilirubin Negative (NEGATIVE) 07/21/17 22:00 Urine Urobilinogen 2.0 mg/dL (0.2-1.0) 07/21/17 22:00 Ur Leukocyte Esterase Negative (NEGATIVE) 07/21/17 22:00 RPR Titer Nonreactive (NONREACTIVE) 07/22/17 07:30 Assessment: 07/26/17 17:12 WITHDRAWAL SX Plan: CONTINUE DETOX
[2017-07-26] MEDS: ACETAMINOPHEN 325 MG TABLET (FP) PO PRN (21:31)
[2017-07-26] MEDS: QUEtiapine FUMARATE 100 MG TABLET (FP) PO SCH (22:28)
[2017-07-26] MEDS: THIAMINE HCL 100 MG TABLET (FP) PO SCH (22:28)
[2017-07-27] MEDS: CYCLOBENZAPRINE HCL 10 MG TABLET (FP) PO SCH (05:45)
[2017-07-27] MEDS ORDERED: METHADONE HCL 5 MG TABLET (FOR DETOX USE ONLY) PO ONE (06:00)
[2017-07-27] MEDS: ACETAMINOPHEN 325 MG TABLET (FP) PO PRN (09:22)
[2017-07-27] MEDS: PRENATAL VITAMINS W/ FOLIC ACID TABLET (FP) PO SCH (09:23)
[2017-07-27 09:37] VITALS: BP 114/72; PULSE 100; TEMP 98.5
[2017-07-27] MEDS: NICOTINE 14 MG/24 HOURS TOPICAL PATCH TD SCH (10:46)
[2017-07-27] MEDS: cloNIDine HCL 0.1 MG TABLET PO SCH (10:46)
--- NOTE | 2017-07-27 13:34 | DS ---
[facility] Detox Discharge Summary Admission Date: 07/21/17 Discharge Date: 07/27/17 - History Present History: Cannabis Dependence, Opioid Dependence Additional Comments: PAT[facility]ING [facility] [facility] FOR [facility]ARE. PATIENT WAS DISCHARGED FROM DETOX UNIT IN STABLE MEDICAL CONDITION. Pertinent Past History: Nicotine Dependence, Insomnia, Depression. - Physical Exam Results Vital Signs: Vital Signs Temperature 98.5 F 07/27/17 09:37 Pulse Rate 100 H 07/27/17 09:37 Respiratory Rate 18 07/27/17 09:37 Blood Pressure 114/72 07/27/17 09:37 O2 Sat by Pulse Oximetry (%) Pertinent Admission Physical Exam Findings: WITHDRAWAL SYMPTOMS. Laboratory Tests 07/21/17 07/22/17 07/22/17 22:00 07:30 07:30 WBC 13.5 H RBC 4.53 Hgb 13.6 Hct 42.6 MCV 93.9 MCH 30.0 MCHC 31.9 L RDW 13.2 Plt Count 419 MPV 7.4 L Sodium 143 Potassium 4.0 Chloride 105 Carbon Dioxide 31 Anion Gap 7 L BUN 13 Creatinine 0.7 Creat Clearance w eGFR > 60 Random Glucose 104 Calcium 9.0 Total Bilirubin 0.5 AST 19 ALT 39 Alkaline Phosphatase 77 Total Protein 7.4 Albumin 3.9 Urine Color Yellow Urine Appearance Clear Urine pH 7.0 Ur Specific [place] 1.027 Urine Protein Negative Urine Glucose (UA) Negative Urine Ketones Negative Urine Blood Negative Urine Nitrite Negative Urine Bilirubin Negative Urine Urobilinogen 2.0 Ur Leukocyte Esterase Negative RPR Titer 07/22/17 07:30 WBC RBC Hgb Hct MCV MCH MCHC RDW Plt Count MPV Sodium Potassium Chloride Carbon Dioxide Anion Gap BUN Creatinine Creat Clearance w eGFR Random Glucose Calcium Total Bilirubin AST ALT Alkaline Phosphatase Total Protein Albumin Urine Color Urine Appearance Urine pH Ur Specific [place] Urine Protein Urine Glucose (UA) Urine Ketones Urine Blood Urine Nitrite Urine Bilirubin Urine Urobilinogen Ur Leukocyte Esterase RPR Titer Nonreactive LABS NOTED. - Treatment Hospital Course: Detox Protocol Followed, Detoxed Safely, Responded well, Discharged Condition Good, Rehab Referral Accepted Patient has Accepted a Rehab Referral to: [facility] [facility] . - Medication Discharge Medications: Ambulatory Orders NK [No Known Home Medication] 07/21/17 - Diagnosis (1) Cannabis dependence, uncomplicated Status: Acute (2) Insomnia Status: Acute Qualifiers: Insomnia type: unspecified Qualified Code(s): G47.00 - Insomnia, unspecified (3) Nicotine dependence Status: Acute Qualifiers: Nicotine product type: cigarettes Substance use status: in withdrawal Qualified Code(s): F17.213 - Nicotine dependence, cigarettes, with withdrawal (4) Opioid dependence with withdrawal Status: Acute (5) Personality disorder, unspecified Status: Suspected - AMA Did Patient Leave Against Medical Advice: No
== END 2017-07-27 11:32 | disposition other institution (70) | DRG 773 ==
LOC: YASAS 21:09 → Y3N 21:31
PROVIDERS: ADMIT Internal Medicine; ATTEND Internal Medicine
PROC: HZ2ZZZZ Detoxification Services for Substance Abuse Treatment (ICD-10-PCS; principal; 2017-07-21)
DX: F11.23 Opioid dependence with withdrawal (principal); F12.20 Cannabis dependence, uncomplicated; F17.213 Nicotine dependence, cigarettes, with withdrawal; F60.9 Personality disorder, unspecified; F32.9 Major depressive disorder, single episode, unspecified; G47.00 Insomnia, unspecified
CPT/HCPCS: 36415; 80053; 81003; 85027; 86593; 90688; 93005; 93010; J0735

== ENCOUNTER 2017-07-27 11:33 | Inpatient (IN) | payer OTHER ==
--- NOTE | 2017-07-27 12:45 | PN ---
[facility] Progress Note Note: Psychiatry Attending's note : Seroquel 100 mg po hs.Patient's request. Renewed for continuity of care on .
--- NOTE | 2017-07-27 12:45 | HP ---
[facility] Rehab Assess/Revision - Admission History Admitted to Rehab from: [facility] Date of Admission to Rehab: 07/27/17 - Vital signs Vital Signs: Vital Signs Period Temp Pulse Resp BP Sys/Mcwilliams Pulse Ox Last 24 Hr 97.6 F 115 20 129/79 - Findings Detox History & Physical reviewed: Yes Concur with findings: Yes Comments/Additional Findings: FOR REHAB PROTOCOL Inpatient Rehab Admission - Initial Determination Are CD services needed?: Yes Free of communicable disease: Yes Not in need of hospitalization: Yes - Rehab Admission Criteria Previous failed treatment: Yes Poor recovery environment: Yes Comorbidities: No Lacks judgement: No Patient is meeting Inpatient Rehab admission criteria:: Yes
[2017-07-27] MEDS ORDERED: ACETAMINOPHEN 325 MG TABLET (FP) PO PRN (12:46)
[2017-07-27] MEDS ORDERED: P-EPHED 60MG/TRIPROLIDI 2.5MG TABLET PO PRN (12:46)
[2017-07-27] MEDS ORDERED: MAGNESIUM HYDROX 2400MG/30ML ORAL SUSPENSION 30 ML CUP PO PRN (12:46)
[2017-07-27] MEDS ORDERED: MAG HYDROX/AL HYDROX/SIMETH 30 ML UNIT-DOSE CUP PO PRN (12:46)
[2017-07-27] MEDS ORDERED: guaiFENesin/D-METHORPHAN HB 10 ML UNIT-DOSE CUPS PO PRN (12:46)
[2017-07-27] MEDS ORDERED: MAGNESIUM CITRATE 300 ML BOTTLE PO PRN (12:46)
[2017-07-27] MEDS ORDERED: LOPERAMIDE HCL 2 MG CAPSULE PO PRN (12:46)
[2017-07-27] MEDS ORDERED: hydrOXYzine PAMOATE 50 MG CAPSULE (FP) PO PRN (12:46)
[2017-07-27] MEDS ORDERED: MENTHOL/PHENOL 1 EACH UD MM PRN (12:46)
[2017-07-27] MEDS: THIAMINE HCL 100 MG TABLET (FP) PO SCH (21:54)
[2017-07-27] MEDS: QUEtiapine FUMARATE 100 MG TABLET (FP) PO SCH (21:55)
[2017-07-28] MEDS: PRENATAL VITAMINS W/ FOLIC ACID TABLET (FP) PO SCH (10:34)
[2017-07-28] MEDS: QUEtiapine FUMARATE 100 MG TABLET (FP) PO SCH (22:08)
[2017-07-28] MEDS: THIAMINE HCL 100 MG TABLET (FP) PO SCH (22:08)
[2017-07-29 07:03] VITALS: BP 108/73; PULSE 91; TEMP 98
[2017-07-29] MEDS: PRENATAL VITAMINS W/ FOLIC ACID TABLET (FP) PO SCH (10:39)
--- NOTE | 2017-07-29 13:45 | PN ---
[facility] Progress Note Note: around 11.30 am staff writer went to the patient's room and asked the patient to come for attending admission interview, he was in bed covered with a blanket, reported that he does not feel well and needs 5-10 min to rest and will come to see me later. He never showed up for interview, but went for lunch and after it was reported by the staff that he left AMA because non-smoking policy and refused to see any staff member, patient left prior to be seen by a psychiatrist for admission. Please see medical staff notes.
== END 2017-07-29 12:45 | disposition left against medical advice (07) | DRG 770 ==
LOC: YASAS 11:33 → Y5N 11:34
PROVIDERS: ADMIT Psychiatry & Neurology Psychiatry; ATTEND Psychiatry & Neurology Psychiatry
PROC: HZ42ZZZ Group Counseling for Substance Abuse Treatment, Cognitive-Behavioral (ICD-10-PCS; principal; 2017-07-27)
DX: F11.20 Opioid dependence, uncomplicated (principal); F12.20 Cannabis dependence, uncomplicated; F17.210 Nicotine dependence, cigarettes, uncomplicated